=== PATIENT | female | born 1965 | race Caucasian/White ===

== ENCOUNTER → 2022-09-18 | Outpatient (CLI) | payer BC, SELFPAY ==
[2022-09-26 14:21] LABS: HPV APTIMA, High Risk Negative (Negative)
== END | disposition home or self-care (01) ==
PROVIDERS: PCP Family Medicine; Visit Provider Registered Nurse
DX: Z12.4 Encounter for screening for malignant neoplasm of cervix (principal)
CPT/HCPCS: 87624; 88175; G0145

== ENCOUNTER 2023-06-10 07:44 | Day surgery (SDC) | payer BC, SELFPAY ==
--- NOTE | 2023-06-10 07:53 | HP.PCM_ITS ---
[facility] - General General Date of Service: 06/10/23 HPI Narrative GALLITO GARCIA, is a 58 F who presents for screening anoscopy. Patient never had previous colonoscopy. Patient has bowel movements daily denies any blood. Patient denies any current abdominal pain/nausea/vomiting. No immediate family history of colon cancer patient's maternal grandparent had colon cancer in their 70s. [facility] Medical History (Updated 06/09/23 @ 08:09 by Katrina Christianson) Back pain Family history of colon cancer History of benign neoplasm of salivary gland History of echocardiogram Leg cramps Non-smoker Post-menopausal Prolapsed uterus Salivary gland abscess Home Medications cholecalciferol (vitamin D3) 10 mcg/mL (400 unit/mL) oral drops 10 mcg PO DAILY 09/18/22 [History Last Taken Unknown] elderberry fruit 350 mg capsule 350 mg PO DAILY 09/18/22 [History Last Taken Unknown] Echinacea purpurea extract 125 mg tablet (echinacea) 125 mg PO TID 05/12/23 [History Last Taken Unknown] ascorbic acid 1,000 [id number]-[id number] powder effervescent pack (Emergen- C) 1 ea PO DAILY 05/12/23 [History Last Taken Unknown] zinc gluconate 30 mg tablet 30 mg PO DAILY 05/12/23 [History Last Taken Unknown] Allergy/AdvReac Type Severity Reaction Status Date / Time No Known Allergies Allergy Verified 06/09/23 08:02 Family History (Updated 05/12/23 @ 09:08 by Yuliana Richter) Grandfather Colon cancer Surgical History (Updated 06/09/23 @ 08:08 by Katrina Christianson) Hx laparoscopic cholecystectomy Hx of left knee surgery S/P tonsillectomy Social History adopted: No household members: spouse and children current occupational status: employed current occupation: clean horse stalls pets and animals: Yes pets and animals: cat(s), dog(s), horse(s) and iguana(s) sexually active: Yes Smoking Status: Never smoker alcohol intake: never substance use type: does not use diet: low carbohydrate well-balanced diet: daily or most days caffeine: No eating out: rarely or never during the past year weight has: remained stable seatbelt use: always do you feel safe at home: Yes Past Medical/Surgical History Planned Operation Planned Operative Procedure/s: CSCOPE OA Previous Hospitalizations/Surgeries HX Hospitalizations: No Any Problems With Anesthesia: Yes (N,V) You/Your Family Experience Fever (Hyperthermia) With Anes: No Cholinesterase deficiency: No Cardiovascular Hx Hypertension: No Respiratory Hx Sleep Apnea: No Hx Respiratory Tract Infection/Cold (presently): No Do You Snore Loudly (louder than talking or can be heard): No Do You Often Feel Tired/ Fatigued/ Sleepy Dring Daytime?: No Has Anyone Observed You Stop Breathing During Sleep?: No Result (for STOP score): Negative Smoking Status: Never smoker Neurological Does patient have nerve stimulator: No Reproduction : No Allergies No Known Allergies Allergy (Verified 06/09/23 08:02) Discharge Is Pt Admitted From a Care Home, or a Residential: No After D/C, Where Do you Plan to Go: Return Home Physical Exam Const alert, oriented x3 and no apparent distress HEENT normocephalic and head/scalp atraumatic Resp normal respiratory effort Cardio regular rate GI soft to palpation and non-tender; Negative for non-distended Palpation: Negative for guarding Extremity no clubbing, cyanosis or edema Skin no rashes or lesions noted Neuro CN's II-XII intact bilaterally Psych mental status grossly normal Assessment & Plan Assessment/Plan (1) Encounter for screening for malignant neoplasm of colon: Surgery Risks - Colonoscopy I discussed with the patient the risks of the procedure: Yes Risks Include but are not Limited To: Risks include but are not limited to: Bleeding, perforation requiring further surgery, inability to complete colonoscopy requiring barium enema.
[2023-06-10 07:57] VITALS: BP 140/90; PULSE 82; RESP 18; TEMP 36.2; O2SAT 100; BMI 25.9
[2023-06-10] MEDS: Lactated Ringers 1,000 ML 15 ML IV (08:03)
--- NOTE | 2023-06-10 08:58 | OP.COLON_ITS ---
Patient Name: Saud Neff Procedure Date: 06/10/2023 8:30 AM Date of : 1965 Age: 58 Procedure: Colonoscopy Indications: Screening for colorectal malignant neoplasm Providers: Evon Carey MD Medicines: Monitored Anesthesia Care Patient Profile: This is a 58 year old female. Last Colonoscopy: none. The patient's first colonoscopy is today. Complications: No immediate complications. Procedure: Pre-Anesthesia Assessment: - Prior to the procedure, a History and Physical was performed, and patient medications and allergies were reviewed. The patient's tolerance of previous anesthesia was also reviewed. The risks and benefits of the procedure and the sedation options and risks were discussed with the patient. All questions were answered, and informed consent was obtained. Prior Anticoagulants: The patient has taken no anticoagulant or antiplatelet agents. ASA Grade Assessment: Per anesthesia. After reviewing the risks and benefits, the patient was deemed in satisfactory condition to undergo the procedure. After I obtained informed consent, the scope was passed under direct vision. Throughout the procedure, the patient's blood pressure, pulse, and oxygen saturations were monitored continuously. The Colonoscope was introduced through the anus and advanced to the cecum, identified by appendiceal orifice and ileocecal valve. The colonoscopy was somewhat difficult due to a tortuous colon. The patient tolerated the procedure well. The quality of the bowel preparation was good. Scope In: 8:37:23 AM Scope Withdrawal Time 0 hours 5 minutes 51 seconds Scope Out: 8:53:45 AM Total Procedure Duration Time 0 hours 16 minutes 22 seconds Findings: The perianal and digital rectal examinations were normal. Multiple small-mouthed diverticula were found in the sigmoid colon and descending colon. The exam was otherwise without abnormality. Impression: - Diverticulosis in the sigmoid colon and in the descending colon. - The examination was otherwise normal. - No specimens collected. Recommendation: - Discharge patient to home. - Resume previous diet. - Continue present medications. - Repeat colonoscopy in 10 years for screening purposes. Procedure Code(s): --- Professional --- G0121, PT, Colorectal cancer screening; colonoscopy on individual not meeting criteria for high risk Diagnosis Code(s): --- Professional --- Z12.11, Encounter for screening for malignant neoplasm of colon K57.30, Diverticulosis of large intestine without perforation or abscess without bleeding CPT copyright 2021 [employer]. All rights reserved. The codes documented in this report are preliminary and upon guest experience representative review may be revised to meet current compliance requirements. MD Evon Ruiz MD 06/10/2023 8:58:14 AM This report has been signed electronically. Number of Addenda: 0 Note Initiated On: 06/10/2023 8:30 AM
--- NOTE | 2023-06-10 08:58 | OP.CCLET_ITS ---
06/10/2023 Isidoro Gamboa [address] [place] [address] Re : Colonoscopy procedure for Saud Tawanda Dear Dr. Gamboa This procedure was performed on Saturday, June 10, 2023. My impressions and recommendations are as follows: Impressions : - Diverticulosis in the sigmoid colon and in the descending colon. - The examination was otherwise normal. - No specimens collected. Recommendations : - Discharge patient to home. - Resume previous diet. - Continue present medications. - Repeat colonoscopy in 10 years for screening purposes. My findings are described in the full procedure note, which is enclosed. If I can be of further assistance, please feel free to contact me at Doctor phone number(s): , Work: . Sincerely, MD Evon Ruiz MD 06/10/2023 8:58:14 AM This report has been signed electronically.
[2023-06-10 08:59] VITALS: BP 110/65; BP 140/90; PULSE 68; RESP 16; TEMP 36.1; O2SAT 96
[2023-06-10 09:05] VITALS: BP 103/68; BP 140/90; PULSE 63; RESP 16; O2SAT 97
[2023-06-10 09:10] VITALS: BP 140/90; BP 99/75; PULSE 57; RESP 16; O2SAT 98
[2023-06-10 09:14] VITALS: BP 105/66; BP 140/90; PULSE 56; RESP 16; TEMP 36.4; O2SAT 98
[2023-06-10 09:24] VITALS: BP 140/90
== END 2023-06-10 09:59 | disposition home or self-care (01) ==
LOC: EN 07:46 → AC 07:48
PROVIDERS: PCP Family Medicine; Referring Provider Family Medicine; Visit Provider Surgery
PROC: 0DJD8ZZ Inspection of Lower Intestinal Tract, Via Natural or Artificial Opening Endoscopic (ICD-10-PCS; CPT 45378; principal; 2023-06-10 08:55)
DX: Z12.11 Encounter for screening for malignant neoplasm of colon (principal); K57.30 Diverticulosis of large intestine without perforation or abscess without bleeding; Z80.0 Family history of malignant neoplasm of digestive organs; Z90.49 Acquired absence of other specified parts of digestive tract
CPT/HCPCS: 45378; J7120; J2405

== ENCOUNTER → 2024-11-19 | Outpatient (CLI) | payer BC, SELFPAY | END | disposition home or self-care (01) | LOC: LABSPEC 10:57 | PROVIDERS: PCP Family Medicine; Visit Provider Registered Nurse | DX: R35.0 Frequency of micturition (principal) | CPT/HCPCS: 87077; 87086; 87088; 87186 ==

== ENCOUNTER → 2025-01-12 | Outpatient (CLI) | payer BC, SELFPAY | END | disposition home or self-care (01) | LOC: LABSPEC 16:16 | PROVIDERS: PCP Family Medicine; Referring Provider Nurse Practitioner Family; Visit Provider Nurse Practitioner Family | DX: N94.89 Other specified conditions associated with female genital organs and menstrual cycle (principal) | CPT/HCPCS: 87086; 87088 ==

== ENCOUNTER 2025-02-15 07:30 | Outpatient (RCR) | payer BC, SELFPAY ==
--- NOTE | 2025-01-12 16:59 | HP.PTEVAL ---
Patient's Visit Information Visit Information Visit Information: GALLITO GARCIA is a 59 year old F referred to Physical Therapy by Mckayla Hayden CNM with a diagnosis of N91.4 Uterovaginal prolapse, unspecified. Date of Evaluation: 01/12/25 Physical Therapist: Hodan Arauz Visit Plan Frequency: 1x/Week Duration: 3 Months Plan: Gallito would benefit from skilled PT intervention to address her prolapse and pelvic floor strength. We will educate her in proper breathing techniques and techniques to help lessen pressure down thru her pelvic floor which will help her with management of her prolapse. Next visit manual therapy on her pelvic floor to address mild tightness bilaterally layer 2. Add week 2. Evaluate breathing mechanics. Educate on lifting and engaging her pelvic floor. How many visits were approved? She will also need work on lumbar - worse on right side especially in T/L junction. Subjective Subjective: She has had bulging for years. Got worse in the last year or so. She has 10 children. She has done all vaginal deliveries. Oldest is 32 and youngest is 11 years old. She was using a pessary but at times just doesn't put it back in . She is going to get it checked again today. She removes it for intercourse. Doesn't bother her but sometimes it is annoying. She has been getting urinary track infections. She is emptying completely. She just got over an infection about a month ago. Everything is out. She doesn't have any other symptoms. She doesn't leak. She bikes (she goes 10-20 miles) and walks the dogs. 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 She feels discomfort when she goes bike riding. She feels it worse end of the day, worse more she is on her feet. Lifting aggravating. Objective Objective: Uterine prolapse stage 4, rectocele 2, difficult to evaluate cystocele due to uterine prolapse Mild pelvic floor tightness bilaterally layer 2 Left upslip Right rotation T10-L4 Did not evaluate breathing mechanics today LAYCOCK 2+/4/4/3 difficulty relaxing between contractions POPDI-6 11, CRAD-8 0, CECILIA-6 8 Goals Goal 1:: Gallito will be able to ride a bike without feeling pinching vaginally . Goal Time Frame: 6-8 Weeks Goal 2:: Gallito will be stand up 2 hours to do cooking activities without feeling pressure or discomfort vaginally. 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 Goal Time Frame: 8-12 Weeks Rehabilitation Potential Physical Therapy Diagnosis: N91.4, Rectocele N81.6 Rehabilitation Potential: Good Anticipated Interventions Patient/Client Instruction: Educate patient on: Condition and Plan of Care For the Purpose of:: To improve muscle performance and motor function, To improve health and function and To improve self management Therapeutic Exercise to Include: Strength training, Endurance training and Neuromotor development For the Purpose of:: To improve muscle performance and motor function, To improve health and function and To improve self management Manual Therapy Techniques to Include: Trigger point massage and Soft tissue mobilization For the Purpose of:: To improve muscle performance and motor function and To improve health and function Text: Thank you for the opportunity to evaluate your patient. For Medicare and Medicare HMO plans, please review the plan of care and approve it. It will need to be FAXED BACK to us at [phone] for Medicare purposes. For Medicare only, by signing this I certify the plan of care. Please let me know if there are questions or concerns regarding this plan of care. Physician Signature: Date:
--- NOTE | 2025-02-15 09:04 | HP.PTDCSUM ---
Discharge Summary D/C summary: It has been my pleasure to treat GALLITO GARCIA referred by Mckayla Hayden CNM, with the diagnosis of N91.4 Uterovaginal prolapse, unspecified for a total of 6 visit(s). Discharge Date: 02/15/25 Please see the following information for a summary of their discharge status. Subjective Subjective: She admits she hasn't been great about doing her exercises due to all that she has going on with the busyness of her life. Objective Objective/Function: Redness and irritation at cervix. Redness has increased since last visit. Recommending she follow up with doctor this week regarding that (she has appointment on ). Recommending she follow up with her doctor regarding surgical intervention to address significant uterine prolapse. Her uterus continues to remain stage 4 and requires manual manipulation back into vaginal canal on every treatment. Goals Goal 1:: Gallito will be able to ride a bike without feeling pinching vaginally . Goal Progress: Not Progressing Goal 2:: Gallito will be stand up 2 hours to do cooking activities without feeling pressure or discomfort vaginally. 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 Goal Progress: Not Progressing Plan Plan: Gallito has met her max rehab potential and insurance visit limit and is ready to discharge. She is now independent in a pelvic floor strengthening program for home she will do in preparation for a potential upcoming surgery. D/C Information Discharge Comments: She will continue her pelvic floor strengthening program at home. Recommending she follow up with her doctor regarding continued irritation of cervix and prolapse. d/c sentence: If there are questions or concerns regarding this patient's physical therapy, please feel free to call me at [phone]. Thank you for the referral of this patient. Sincerely, Hodan Arauz
== END 2025-02-15 19:00 | disposition home or self-care (01) ==
LOC: PT 07:30
PROVIDERS: PCP Family Medicine; Referring Provider Registered Nurse; Visit Provider Registered Nurse
DX: N81.4 Uterovaginal prolapse, unspecified (principal)
CPT/HCPCS: 97110; 97112; 97140; 97161; 97530

== ENCOUNTER → 2025-02-16 | Outpatient (CLI) | payer BC, SELFPAY ==
[2025-02-22 13:08] LABS: HPV APTIMA, High Risk Negative (Negative)
== END | disposition home or self-care (01) ==
LOC: LABSPEC 11:55
PROVIDERS: PCP Family Medicine; Referring Provider Nurse Practitioner Family; Visit Provider Nurse Practitioner Family
DX: Z12.4 Encounter for screening for malignant neoplasm of cervix (principal)
CPT/HCPCS: 87624; 88175; G0145

== ENCOUNTER → 2025-03-16 | Outpatient (CLI) | payer BC, SELFPAY ==
--- NOTE | 2025-03-16 07:55 | US_ITS ---
PROCEDURE: PELVIC W/ TRANSVAGINAL 03/16/2025 REASON FOR EXAM: SURGICAL PLANNING TECHNIQUE: Procedure Code: USPELTVAG Modality: US Procedure: PELVIC W/ TRANSVAGINAL COMPARISON: None. FINDINGS: Measurements: Uterus: 7.4 x 2.0 x 5.3 cm. Endometrial Thickness: 3 mm. Left Ovary: 1.8 x 0.9 x 1.8 cm. Uterus: Unremarkable. Endometrium: Normal. Right ovary: Not visualized. Left ovary: Unremarkable in echotexture and vascularity. Other: The bladder is distended but otherwise unremarkable. US/Pelvic w/ Transvaginal IMPRESSION: Unremarkable ultrasound of the ureter in the left ovary. The right ovary is not visualized. Reading Location: [id number]
--- NOTE | 2025-03-16 07:55 | US_ITS ---
PROCEDURE: PELVIC W/ TRANSVAGINAL 03/16/2025 REASON FOR EXAM: SURGICAL PLANNING TECHNIQUE: Procedure Code: USPELTVAG Modality: US Procedure: PELVIC W/ TRANSVAGINAL COMPARISON: None. FINDINGS: Measurements: Uterus: 7.4 x 2.0 x 5.3 cm. Endometrial Thickness: 3 mm. Left Ovary: 1.8 x 0.9 x 1.8 cm. Uterus: Unremarkable. Endometrium: Normal. Right ovary: Not visualized. Left ovary: Unremarkable in echotexture and vascularity. Other: The bladder is distended but otherwise unremarkable. US/Pelvic w/ Transvaginal IMPRESSION: Unremarkable ultrasound of the ureter in the left ovary. The right ovary is not visualized. Reading Location: [id number]
== END | disposition home or self-care (01) ==
LOC: US 07:54
PROVIDERS: PCP Family Medicine; Referring Provider Nurse Practitioner Family; Visit Provider Nurse Practitioner Family
DX: N81.4 Uterovaginal prolapse, unspecified (principal)
CPT/HCPCS: 76830; 76856